=== PATIENT | female | born 1935 | race Caucasian/White ===

== ENCOUNTER 2018-06-26 07:55 | Outpatient (CLI) | payer MEDICARE ==
[~2018-06-26 07:55] MED LIST: LIDOCAINE 2% 20 ML VIAL.
[2018-06-26 08:17] LABS: HEMATOCRIT 37.6 % (36.0-47.0); HEMOGLOBIN 12.5 g/dL (12.0-15.5); MEAN CORPUSCULAR HEMOGLOBIN 29 pg (25-35); MEAN CORPUSCULAR HGB CONC 33 g/dL (31-37); MEAN CORPUSCULAR VOLUME 86 fL (79-100); PLATELET COUNT 283 x10^3/uL (140-400); RED BLOOD COUNT 4.38 x10^6/uL (3.50-5.40); RED CELL DISTRIBUTION WIDTH 15.4 % (11.5-14.5); WHITE BLOOD COUNT 8.9 x10^3/uL (4.0-11.0)
[2018-06-26 08:27] LABS: INR 1.4 (0.8-1.1); PARTIAL THROMBOPLASTIN TIME 24 SEC (24-38)
[2018-06-26 08:32] LABS: ANION GAP 7 (6-14); BLOOD UREA NITROGEN 29 mg/dL (7-20); CALCIUM 9.1 mg/dL (8.5-10.1); CARBON DIOXIDE 27 mmol/L (21-32); CHLORIDE 105 mmol/L (98-107); CREATININE 1.4 mg/dL (0.6-1.0); GLUCOSE 192 mg/dL (70-99); POTASSIUM 4.9 mmol/L (3.5-5.1); SODIUM 139 mmol/L (136-145)
[2018-06-26] MEDS ORDERED: IODIXANOL 320 MG/ML 100 ML VIAL. (09:29)
[2018-06-26] MEDS ORDERED: fentaNYL PF VIAL 100 MCG/2 ML VIAL (09:53)
[2018-06-26] MEDS ORDERED: MIDAZOLAM HCL/PF 2 MG/2 ML VIAL. (09:53)
[2018-06-26] MEDS ORDERED: CONTRAST GIVEN. MC (10:30)
[2018-06-26] MEDS: MIDAZOLAM HCL/PF 2 MG/2 ML VIAL. IV (10:53)
[2018-06-26] MEDS: IODIXANOL 320 MG/ML 100 ML VIAL. IART (10:53)
[2018-06-26] MEDS: LIDOCAINE 2% 20 ML VIAL. IJ (10:53)
[2018-06-26] MEDS: fentaNYL PF VIAL 100 MCG/2 ML VIAL IV (10:54)
== END 2018-06-26 14:30 | disposition home or self-care (01) ==
LOC: CCL 07:55
DX: I35.0 Nonrheumatic aortic (valve) stenosis (principal); I10 Essential (primary) hypertension; E11.9 Type 2 diabetes mellitus without complications; Z86.718 Personal history of other venous thrombosis and embolism; Z90.49 Acquired absence of other specified parts of digestive tract; Z85.3 Personal history of malignant neoplasm of breast; Z90.710 Acquired absence of both cervix and uterus; M19.90 Unspecified osteoarthritis, unspecified site; Z96.653 Presence of artificial knee joint, bilateral; Z79.899 Other long term (current) drug therapy; Z79.01 Long term (current) use of anticoagulants; Z98.49 Cataract extraction status, unspecified eye; Z79.84 Long term (current) use of oral hypoglycemic drugs
CPT/HCPCS: 36415; 80048; 85027; 85610; 85730; 93460; 99152; 99153; C1769; C1771; C1773; C1892; G0269; J1644; J2001; J2250; J3010